=== PATIENT | female | born 1950 | race Caucasian/White ===

== ENCOUNTER 2017-11-07 11:00 | Outpatient (RCR) | payer MEDICARE, OTHER, SELFPAY | END 2017-11-18 | LOC: PT.CARL 11:00 | PROVIDERS: Referring Provider Physician Assistant; Visit Provider Physician Assistant | DX: M70.60 Trochanteric bursitis, unspecified hip (principal) | CPT/HCPCS: G8978; G8979; G8980; 97010; 97033; 97035; 97110; 97140; 97162 ==

== ENCOUNTER → 2018-02-06 09:46 | Outpatient (CLI) | payer MEDICARE, OTHER, SELFPAY ==
[2018-02-06 13:36] LABS: INR 1.77 (0.9-1.1); Prothrombin Time 19.2 seconds (9.4-11.8)
== END ==
PROVIDERS: PCP Internal Medicine; Visit Provider Nurse Practitioner Family
DX: Z79.01 Long term (current) use of anticoagulants (principal); Z51.81 Encounter for therapeutic drug level monitoring
CPT/HCPCS: 36415; 85610

== ENCOUNTER → 2018-02-09 09:32 | Outpatient (CLI) | payer MEDICARE, OTHER, SELFPAY ==
[2018-02-09 13:43] LABS: INR 2.89 (0.9-1.1); Prothrombin Time 31.6 seconds (9.4-11.8)
== END ==
PROVIDERS: Visit Provider Nurse Practitioner Family
DX: Z79.01 Long term (current) use of anticoagulants (principal); Z51.81 Encounter for therapeutic drug level monitoring
CPT/HCPCS: 36415; 85610

== ENCOUNTER → 2018-02-13 12:38 | Outpatient (CLI) | payer MEDICARE, OTHER, SELFPAY ==
[2018-02-13 12:59] LABS: INR 3.81 (0.9-1.1); Prothrombin Time 41.7 seconds (9.4-11.8)
== END ==
PROVIDERS: Visit Provider Internal Medicine
DX: Z79.01 Long term (current) use of anticoagulants (principal); Z51.81 Encounter for therapeutic drug level monitoring
CPT/HCPCS: 36415; 85610

== ENCOUNTER → 2018-02-21 11:24 | Outpatient (CLI) | payer MEDICARE, OTHER, SELFPAY ==
[2018-02-21 14:12] LABS: INR 2.67 (0.9-1.1); Prothrombin Time 29.1 seconds (9.4-11.8)
== END ==
PROVIDERS: Visit Provider Nurse Practitioner Family
DX: Z79.01 Long term (current) use of anticoagulants (principal); Z51.81 Encounter for therapeutic drug level monitoring
CPT/HCPCS: 36415; 85610

== ENCOUNTER → 2018-08-14 09:16 | Outpatient (CLI) | payer MEDICARE, OTHER, SELFPAY ==
[2018-08-14 14:30] LABS: INR 1.45 (0.9-1.1); Prothrombin Time 14.8 seconds (9.4-11.8)
== END ==
PROVIDERS: PCP Internal Medicine; Visit Provider Internal Medicine Hematology & Oncology
DX: Z79.01 Long term (current) use of anticoagulants (principal)
CPT/HCPCS: 36415; 85610

== ENCOUNTER → 2018-08-21 10:27 | Outpatient (CLI) | payer MEDICARE, OTHER, SELFPAY ==
[2018-08-21 14:50] LABS: Prothrombin Time 40.2 seconds (9.4-11.8)
[2018-08-21 16:53] LABS: INR 4.06 (0.9-1.1)
== END ==
PROVIDERS: PCP Internal Medicine; Visit Provider Internal Medicine Hematology & Oncology
DX: Z51.81 Encounter for therapeutic drug level monitoring (principal); Z79.01 Long term (current) use of anticoagulants
CPT/HCPCS: 36415; 85610

== ENCOUNTER → 2018-08-28 08:19 | Outpatient (CLI) | payer MEDICARE, OTHER, SELFPAY ==
[2018-08-28 14:42] LABS: INR 3.63 (0.9-1.1)
== END ==
PROVIDERS: PCP Internal Medicine; Visit Provider Internal Medicine Hematology & Oncology
DX: Z79.01 Long term (current) use of anticoagulants (principal)
CPT/HCPCS: 36415; 85610

== ENCOUNTER → 2018-10-11 10:30 | Outpatient (CLI) | payer MEDICARE, OTHER, SELFPAY ==
[2018-10-11 14:39] LABS: INR 1.44 (0.9-1.1); Prothrombin Time 14.7 seconds (9.4-11.8)
== END ==
PROVIDERS: PCP Internal Medicine; Visit Provider Internal Medicine Hematology & Oncology
DX: Z51.81 Encounter for therapeutic drug level monitoring (principal); Z79.01 Long term (current) use of anticoagulants
CPT/HCPCS: 36415; 85610

== ENCOUNTER → 2018-10-18 09:19 | Outpatient (CLI) | payer MEDICARE, OTHER, SELFPAY ==
[2018-10-18 15:12] LABS: INR 2.17 (0.9-1.1); Prothrombin Time 21.9 seconds (9.4-11.8)
== END ==
PROVIDERS: PCP Internal Medicine; Visit Provider Internal Medicine Hematology & Oncology
DX: Z51.81 Encounter for therapeutic drug level monitoring (principal); Z79.01 Long term (current) use of anticoagulants
CPT/HCPCS: 36415; 85610

== ENCOUNTER 2019-07-19 11:00 | Outpatient (RCR) | payer MEDICARE, OTHER, SELFPAY | END 2019-08-16 11:00 | disposition home or self-care (01) | LOC: PT.CARL 11:00 | PROVIDERS: PCP Internal Medicine; Visit Provider Orthopaedic Surgery | DX: Z96.652 Presence of left artificial knee joint (principal) | CPT/HCPCS: 97014; 97110; 97116; 97140; 97163; G0283 ==

== ENCOUNTER 2019-10-16 11:00 | Outpatient (RCR) | payer MEDICARE, OTHER, SELFPAY | END 2019-10-16 14:00 | disposition home or self-care (01) | LOC: PT.CARL 11:00 | PROVIDERS: PCP Internal Medicine; Visit Provider Orthopaedic Surgery | DX: M25.562 Pain in left knee (principal); Z96.652 Presence of left artificial knee joint | CPT/HCPCS: 97110; 97112; 97163 ==

== ENCOUNTER 2020-05-08 16:00 | Outpatient (RCR) | payer MEDICARE, OTHER, SELFPAY | END 2020-05-20 15:00 | disposition home or self-care (01) | LOC: PT.CARL 16:00 | PROVIDERS: PCP Internal Medicine; Visit Provider Internal Medicine | DX: S19.9XXA Unspecified injury of neck, initial encounter (principal) | CPT/HCPCS: 97010; 97014; 97035; 97110; 97140; 97163; G0283 ==

== ENCOUNTER 2024-03-16 14:00 | Outpatient (CLI) | payer MEDICARE, OTHER, SELFPAY ==
[2024-03-16 14:31] LABS: Basophils % 1.3 % (0.1-2.0); Eosinophils % 0.2 % (0.1-12.0); Hematocrit 29.3 % (37.0-47.0); Hemoglobin 9.3 g/dL (12.2-16.2); Lymphocytes # 0.7 K/mm3 (0.7-4.5); Lymphocytes % 25.3 % (10-50); Mean Corpuscular HGB Conc 31.9 g/dL (31.8-35.4); Mean Corpuscular Hemoglobin 29.8 pg (27.0-31.2); Mean Corpuscular Volume 93.5 fl (81-99); Monocytes # 0.5 K/mm3 (0.1-1.0); Monocytes % 16.8 % (1.7-9.3); Neutrophils # 1.7 K/mm3 (1.8-7.8); Neutrophils % 56.4 % (37.0-80.0); Red Blood Count 3.13 M/mm3 (4.20-5.40); Red Cell Distribution Width 20.5 % (11.5-17.5); White Blood Count 2.9 K/mm3 (4.8-10.8)
[2024-03-16 14:44] LABS: Platelet Count 1067 K/mm3 (142-424)
[2024-03-16 15:50] LABS: Alanine Aminotransferase 40 U/L (12-78); Albumin Level 3.4 g/dl (3.5-5.0); Albumin/Globulin Ratio 1.3 (1.1-1.8); Alkaline Phosphatase 109 U/L (38-126); Anion Gap 11.4 mEq/L (5-15); Aspartate Amino Transferase 60 U/L (14-36); Bilirubin,Total 0.5 mg/dl (0.2-1.3); Blood Urea Nitrogen 10 mg/dl (7-17); Calcium 9.4 mg/dl (8.4-10.2); Carbon Dioxide 27 mmol/L (22.0-30.0); Chloride 105 mmol/L (98-107); Estimated Glomerular Filt Rate 61 ml/min (>60); GFR (African American) 74 ML/MIN (>60); Globulin 2.7 g/dL (1.3-3.2); Glucose 74 mg/dl (74-100); Potassium 4.4 mmoL/L (3.5-5.1); Sodium 139 mmol/L (136-145); Total Protein,Serum 6.1 g/dl (6.3-8.2)
== END 2024-03-16 23:59 | disposition home or self-care (01) ==
LOC: LAB.DROPOF 14:04
PROVIDERS: PCP Internal Medicine Hematology & Oncology; Visit Provider Internal Medicine
DX: C92.00 Acute myeloblastic leukemia, not having achieved remission (principal)
CPT/HCPCS: 80053; 85025

== ENCOUNTER 2024-04-17 15:08 | Outpatient (CLI) | payer MEDICARE, OTHER, SELFPAY ==
[2024-04-17 16:00] LABS: Basophils % 1.5 % (0.1-2.0); Eosinophils % 1.3 % (0.1-12.0); Hematocrit 30.9 % (37.0-47.0); Hemoglobin 10.9 g/dL (12.2-16.2); Lymphocytes # 0.2 K/mm3 (0.7-4.5); Lymphocytes % 82.3 % (10-50); Mean Corpuscular HGB Conc 35.2 g/dL (31.8-35.4); Mean Corpuscular Hemoglobin 31.6 pg (27.0-31.2); Mean Corpuscular Volume 89.6 fl (81-99); Mean Platelet Volume 8.1 fl (7.4-10.4); Monocytes % 6.6 % (1.7-9.3); Red Blood Count 3.44 M/mm3 (4.20-5.40); Red Cell Distribution Width 16.1 % (11.5-17.5)
[2024-04-17 16:03] LABS: Neutrophils % 8.3 % (37.0-80.0)
[2024-04-17 16:11] LABS: Platelet Count 41 K/mm3 (142-424); White Blood Count 0.3 K/mm3 (4.8-10.8)
[2024-04-17 16:14] LABS: MANUAL DIFFERENTIAL MANUAL DIFFERENTIAL (MANUAL DIFF)
[2024-04-17 16:48] LABS: Lymphocytes % 100 % (10-50); Total Cells Counted 5
[2024-04-17 16:49] LABS: Acanthocytes 1+; Anisocytosis 2+; Platelet Estimate Marked Decrease
== END 2024-04-17 23:59 | disposition home or self-care (01) ==
LOC: LAB.DROPOF 15:10
PROVIDERS: PCP Internal Medicine Hematology & Oncology; Visit Provider Internal Medicine Hematology & Oncology
DX: D64.9 Anemia, unspecified (principal); Z79.01 Long term (current) use of anticoagulants; Z51.81 Encounter for therapeutic drug level monitoring
CPT/HCPCS: 85007; 85025